=== PATIENT | female | born 1960 | race Caucasian/White ===

== ENCOUNTER 2024-08-13 01:16 | Emergency (ER) | payer MEDICAID ==
[~2024-08-13] VITALS: Ht 157.5 cm; Wt 50.0 kg
[2024-08-13 02:03] VITALS: TEMP 98
--- NOTE | 2024-08-13 02:16 | Physician Documentation ---
History of Present Illness Chief Complaint: Abdominal Pain Stated Complaint: ABDOMINAL PAIN Time Seen by MD: 02:16 Source: patient, EMS HPI 63-year-old female, history of splenectomy, who presents with right lower quadrant abdominal pain and vomiting and diarrhea. She tells me that her pain started this morning. She states it is in the right lower quadrant only. It is sharp and severe, hard to find a position of comfort. She reports associated nausea and vomiting. She also has had some nonbloody diarrhea. No fevers or chills. No dysuria or hematuria. No upper abdominal pain. Nothing helps make the pain better. She had tried to drink a lot of Gatorade today. She has had a splenectomy. 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 Medication Reconciliation Allergies: Uncoded Allergies: PENICILLIN (Allergy, Unknown, 08/13/24) Review of Systems Constitutional: Denies: fever Gastrointestinal: Reports: abdominal pain, nausea, vomiting, diarrhea Physical Exam Vital Signs: Temperature: 98.0, Heart Rate: 68, Respiratory Rate: 16, BP: 113/49, Pulse Oximetry: 97, Weight: 50.000 Oxygen Flow Rate: 0 Physical Exam General: This is an uncomfortable appearing disheveled middle-aged female who is moaning and rolling around in bed, tells me that she vomited on herself and had diarrhea and urinated at the same time HEENT: Atraumatic, oropharynx appears dry Heart: Regular rate and rhythm, normal-appearing peripheral perfusion Lungs: normal work of breathing, normal oxygen saturation on room air Abdomen: Soft, nondistended. She does have focal tenderness to palpation in the right lower quadrant/pelvic region, otherwise nontender, no rebound or guarding Neuro: Alert and oriented, no focal deficits Psychiatric: Labile affect, intermittently moaning, but is cooperative Progress Results/Orders Results/Orders Orders - SHIMA GARCIA MD Urinalysis, Cult If Indicated (08/13/24 02:10) Cbc/Diff (08/13/24 02:10) Lipase (08/13/24 02:10) CMP (08/13/24 02:10) Vital Signs 08/13/24 02:03 Temp 98.0 Pulse 68 Resp 16 B/P (MAP) 113/49 Pulse Ox 97 O2 Flow Rate 0 Medical Decision Making Additional Comments Differential includes kidney stone, bladder infection, appendicitis, bowel obstruction, viral syndrome, substance use, dehydration, electrolyte derangement, ovarian torsion Assessment The patient presents with right lower abdominal pain with nausea and vomiting. Her presentation is quite dramatic. She was given IV fluids and pain and nausea medication. Her laboratory testing is grossly unremarkable. CT scan shows no appendicitis, kidney stone or other acute abnormality. Urinalysis pending. The patient was signed out at shift change, pending urinalysis and re-evaluation including p.o. challenge and to determine disposition. Departure Disposition: HOME / SELF CARE / HOMELESS Impression: Primary Impression: Right lower quadrant abdominal pain Additional Impression: Nausea and vomiting Condition: Improved Discharge Instructions: Abdominal Pain (Nonspecific) Referrals: NO PRIMARY CARE PROVIDER (PCP) Education Educated: Patient Educated regarding: diagnosis, treatment Signature Scribe Signature: vj Attestation: SHIMA Benton MD August 13, 2024 02:16
[2024-08-13] MEDS: normal saline 1000ml 1,000 ML IV ONE (02:37)
[2024-08-13] MEDS: ketorolac trometh 15mg/ml vial 15 MG/ML ML IV ONE (02:37)
[2024-08-13 02:40] LABS: BASOPHILS % (AUTO) 0.3 % (0-1); EOSINOPHILS % (AUTO) 0.1 % (0-6); HEMATOCRIT 39.9 % (35.0-45.0); HEMOGLOBIN 13.5 g/dl (12.0-16.0); LYMPHOCYTES # (AUTO) 1.1 X10'3 (1.1-4.8); LYMPHOCYTES % (AUTO) 13.9 % (21-51); MEAN CORPUSCULAR HEMOGLOBIN 29.9 PG (27.0-31.0); MEAN CORPUSCULAR HGB CONC 33.8 g/dL (33.0-36.5); MEAN CORPUSCULAR VOLUME 88.4 FL (78-98); MEAN PLATELET VOLUME 8.4 FL (7.4-10.4); MONOCYTES # (AUTO) 0.4 X10'3 (0-0.9); MONOCYTES % (AUTO) 5.3 % (2-12); NEUTROPHILS # (AUTO) 6.6 X10'3 (1.8-7.7); NEUTROPHILS % (AUTO) 80.4 % (42-75); PLATELET COUNT 173 X10'3 (140-440); RED BLOOD COUNT 4.51 X10'6 (4.20-5.60); RED CELL DISTRIBUTION WIDTH 13.7 % (11.5-14.5); WHITE BLOOD COUNT 8.2 X10'3 (4.5-11.0)
[2024-08-13 02:52] LABS: ALANINE AMINOTRANSFERASE 24 U/L (12-78); ALBUMIN 3.8 G/DL (3.4-5.0); ALBUMIN/GLOBULIN RATIO 1.3 (1.1-1.5); ALKALINE PHOSPHATASE 92 IU/L (46-116); ANION GAP 8 (8-16); ASPARTATE AMINO TRANSFERASE 19 U/L (10-37); BILIRUBIN,TOTAL 1.1 MG/DL (0.1-1.0); BLOOD UREA NITROGEN 13 MG/DL (7-18); CALCIUM 8.8 MG/DL (8.5-10.1); CHLORIDE 107 MMOL/L (99-107); CREATININE 0.62 MG/DL (0.40-0.90); GLUCOSE 138 MG/DL (70-104); LIPASE 24 U/L (16-77); POTASSIUM 3.8 MMOL/L (3.5-5.1); SODIUM 141 MMOL/L (135-145); TOTAL CARBON DIOXIDE 25.6 MMOL/L (24-32); TOTAL PROTEIN 6.7 G/DL (6.4-8.2); eCRCL 75 ML/MIN; eGFR > 90 ML/MIN
[2024-08-13] MEDS ORDERED: iohexol 300mg/ml 100ml inj. ONE (03:08)
[2024-08-13] MEDS: diphenhydrAMINE 50 mg/ml inj IV ONE (03:19)
[2024-08-13] MEDS: proCHLORperazine 10 MG/2 ml inj IV ONE (03:19)
--- NOTE | 2024-08-13 04:26 | RADIOLOGY REPORT ---
EXAM: CT CT ABDOMEN PELVIS W/ IV CONTRAST HISTORY: rlq pain, nausea, vomiting, prior splenectomy COMPARISON: None TECHNIQUE: Helical CT images of the abdomen and pelvis were performed with 100 mL omnipaque 350 IV c ontrast. Sagittal and coronal reformatted images were obtained. This CT exam was performed using 1 or more of the following dose reduction techniques: Automated exposure control, adjustment of the mA an d/or kv according to patient size, or the use of iterative reconstruction techniques. Radiation Dose Information: CT Dose: CTDI volume is 6.5 mGy. Dose-length product is 288.21 mGy*cm FINDINGS: CT abdomen: There is emphysema of the lung bases. The heart is not enlarged. There is a small hiatal hernia. The liver measures 19 cm longitudinal. The spleen is present and normal in appearance. The gallbladder, pancreas, kidneys, and adrenal glands are unremarkable. No abdominal aortic aneurysm or dissection. CT pelvis: No abnormal bowel dilatation, free air, or free fluid. There is fecal retention throughout the colon. The appendix and urinary bladder are unremarkable. There is moderate lumbar degenerative disc disease and facet arthropathy. There is [id number] right hip osteoarthritis. There is mini mal left hip osteoarthritis. IMPRESSION: 1. Small hiatal hernia. 2. Fecal retention in the colon suggestive of constipation. 3. The spleen is present and normal in appearance, despite the patient's given history of splenectomy . 4. No evidence of bowel obstruction, acute appendicitis, or other acute process in the abdomen or pel vis.
[2024-08-13 06:00] VITALS: BP 142/80; PULSE 82; RESP 16; O2SAT 99
[2024-08-13 06:07] LABS: BILIRUBIN,URINE NEGATIVE (Neg); CLARITY,URINE CLEAR (Clear); COLOR,URINE YELLOW (Yellow); GLUCOSE, URINE NEGATIVE (Neg); KETONES,URINE TRACE mg/dl (Neg); LEUKOCYTE ESTERASE ,URINE NEGATIVE (Neg); NITRITES, URINE NEGATIVE (Neg); OCCULT BLOOD,URINE NEGATIVE (Neg); PROTEIN,URINE NEGATIVE (Neg); UROBILINOGEN,URINE 0.2 E.U/dL (0.2-1.0)
[2024-08-13 06:09] LABS: UA COLLECTION TYPE NON-SPECIFIED
[2024-08-13] MEDS ORDERED: ONDA-243 PO (06:24)
== END 2024-08-13 07:00 | disposition home or self-care (01) ==
LOC: ER 01:17
DX: R10.31 Right lower quadrant pain (principal); R11.2 Nausea with vomiting, unspecified; R19.7 Diarrhea, unspecified; Z90.81 Acquired absence of spleen
CPT/HCPCS: 36415; 74177; 80053; 81003; 83690; 85025; 96361; 96374; 96375; 99285; J0780; J1200; J1885; J7030; Q9967